=== PATIENT | male | born 2000 | race Caucasian/White ===

== ENCOUNTER 2021-12-03 20:16 | Emergency (ER) | payer MEDICAID ==
[~2021-12-03] VITALS: Ht 170.2 cm; Wt 50.2 kg
[2021-12-03 20:19] VITALS: BP 147/80
[2021-12-03] MEDS ORDERED: IBUP-2028 MT (22:24)
== END 2021-12-03 22:44 | disposition home or self-care (01) ==
LOC: ER 20:16
DX: S62.396A Other fracture of fifth metacarpal bone, right hand, initial encounter for closed fracture (principal); X58.XXXA Exposure to other specified factors, initial encounter; Y93.89 Activity, other specified; Y92.89 Other specified places as the place of occurrence of the external cause; Y99.8 Other external cause status; Z87.891 Personal history of nicotine dependence
CPT/HCPCS: 29125; 73130; 99283